=== PATIENT | male | born 2000 ===

== ENCOUNTER 2021-06-10 17:02 | Emergency (ER) | payer MEDICAID ==
[~2021-06-10] VITALS: Ht 180.3 cm; Wt 83.9 kg
[2021-06-10] MEDS: IBUPROFEN 800 MG TABLET PO ONE (17:45)
[2021-06-10] MEDS ORDERED: IBUP-1957 PO (18:39)
--- NOTE | 2021-06-10 19:06 | NUR ---
Gave pt RX and d/c instructions, pt verbalized understanding.
== END 2021-06-10 19:14 | disposition home or self-care (01) ==
LOC: ER 17:02
DX: S39.012A Strain of muscle, fascia and tendon of lower back, initial encounter (principal); S96.912A Strain of unspecified muscle and tendon at ankle and foot level, left foot, initial encounter; S16.1XXA Strain of muscle, fascia and tendon at neck level, initial encounter; V49.40XA Driver injured in collision with unspecified motor vehicles in traffic accident, initial encounter; Y92.410 Unspecified street and highway as the place of occurrence of the external cause; M51.26 Other intervertebral disc displacement, lumbar region
CPT/HCPCS: 72125; 72131; 73030; 73610; A4663